=== PATIENT | female | born 1935 | race Two or more races ===

== ENCOUNTER 2019-11-25 08:16 | Outpatient (CLI) | payer OTHER | END 2019-11-25 08:22 | disposition home or self-care (01) | LOC: RX STUDY 08:16 | PROVIDERS: ATTEND Internal Medicine | DX: R13.12 Dysphagia, oropharyngeal phase (principal); K21.9 Gastro-esophageal reflux disease without esophagitis; I13.10 Hypertensive heart and chronic kidney disease without heart failure, with stage 1 through stage 4 chronic kidney disease, or unspecified chronic kidney disease; I67.2 Cerebral atherosclerosis; I70.8 Atherosclerosis of other arteries; I70.213 Atherosclerosis of native arteries of extremities with intermittent claudication, bilateral legs; I70.0 Atherosclerosis of aorta; I25.10 Atherosclerotic heart disease of native coronary artery without angina pectoris; I73.89 Other specified peripheral vascular diseases; E11.22 Type 2 diabetes mellitus with diabetic chronic kidney disease; E11.59 Type 2 diabetes mellitus with other circulatory complications; E11.42 Type 2 diabetes mellitus with diabetic polyneuropathy; E11.39 Type 2 diabetes mellitus with other diabetic ophthalmic complication; E11.65 Type 2 diabetes mellitus with hyperglycemia; Z79.4 Long term (current) use of insulin; E04.2 Nontoxic multinodular goiter; J30.1 Allergic rhinitis due to pollen; Z98.42 Cataract extraction status, left eye; Z98.41 Cataract extraction status, right eye; H01.006 Unspecified blepharitis left eye, unspecified eyelid; H01.003 Unspecified blepharitis right eye, unspecified eyelid; H04.123 Dry eye syndrome of bilateral lacrimal glands; K08.89 Other specified disorders of teeth and supporting structures; K02.7 Dental root caries; K86.2 Cyst of pancreas; K31.84 Gastroparesis; K86.89 Other specified diseases of pancreas; N18.3 Chronic kidney disease, stage 3 (moderate); N28.1 Cyst of kidney, acquired; D63.1 Anemia in chronic kidney disease; D63.8 Anemia in other chronic diseases classified elsewhere; B00.89 Other herpesviral infection; M51.36 Other intervertebral disc degeneration, lumbar region; M75.101 Unspecified rotator cuff tear or rupture of right shoulder, not specified as traumatic; M50.30 Other cervical disc degeneration, unspecified cervical region; M48.02 Spinal stenosis, cervical region; R05 Cough; G47.33 Obstructive sleep apnea (adult) (pediatric); J45.30 Mild persistent asthma, uncomplicated; N60.29 Fibroadenosis of unspecified breast; C44.92 Squamous cell carcinoma of skin, unspecified; L30.8 Other specified dermatitis; E55.9 Vitamin D deficiency, unspecified; Z68.32 Body mass index [BMI] 32.0-32.9, adult; Z86.73 Personal history of transient ischemic attack (TIA), and cerebral infarction without residual deficits; Z85.828 Personal history of other malignant neoplasm of skin ==